=== PATIENT | male | born 1980 | race Caucasian/White ===

== ENCOUNTER → 2025-03-22 | Outpatient (CLI) | payer OTHER, SELFPAY ==
--- OUTSIDE RECORDS SUMMARY | 2025-03-22 14:07 | XMS RPT_ITS | CCD ---
Author Organization [facility] CliniSynh Care Team Providers Care Egg Separator Name Role Phone SHUKRI CHICAS Admitting Unavailable SHUKRI CHICAS Primary Care Unavailable SHUKRI CHICAS Attending Unavailable SHUKRI CHICAS Admitting Unavailable SHUKRI CHICAS Primary Care Unavailable SHUKRI CHICAS Consulting Unavailable SHUKRI CHICAS Attending Unavailable PROVIDER, UNKNOWN Consulting Unavailable Juan Francisco HEEL SCORER, Shukri Falcon Referring Unav ailable Bacon HEEL SCORER, Shukri Falcon Attending Unav ailable Problems Problem Classification Problem Date Documented Da te Episodic/Chronic Disorders of lipid metabolism (1 source) Pure hypercholesterolemi a, unspecified; Translations: [Pure hypercholesterolemi a, unspecified] Onset: 03-20-2025 Chronic Residual codes; unclassified (1 source) Family history of ischemic heart disease and other diseases of the circulatory system; Translations: [Family history of ischemic heart disease and other diseases of the circulatory system] Onset: 03-20-2025 Episodic Results Test Name Value Interpretation Reference Range Facil ity CMP with eGFRon 12-31-2024 AGE 44 years Normal [facility] Comment on above: Performed By: #### 2 [id number] #### [facility],[address] [place] [address]14 Albumin [Mass/Vol] 3.6 g/dL Normal 3.4 - 5.0 [facility] Comment on above: Performed By: #### 2 26772 #### [facility],[address] [place] [address] 48643 Albumin/Globulin [Mass ratio] 1.0 {ratio} Normal 0.9 - 1.6 [facility] Comment on above: Performed By: #### 2 30682 #### [facility],[address] [place] [address] ALK PHOS 69 U/L Normal 46 - 116 [facility] Comment on above: Performed By: #### 2 88409 #### [facility],[address] [place], [place] [id number] ALT [Catalytic activity/Vol] 41 U/L Normal 16 - 63 [facility] Comment on above: Performed By: #### 2 24547 #### [facility],[address] [place] [address] Anion gap [Moles/Vol] 7 mmol/L Low 10 - 20 [facility] Comment on above: Performed By: #### 2 44597 #### [facility],[address] [place] [address] AST [Catalytic activity/Vol] 19 U/L Normal 15 - 37 [facility] Comment on above: Performed By: #### 2 79444 #### [facility],[address] [place] [address] B/C RATIO 16 ratio Normal 0 - 30 [facility] Comment on above: Performed By: #### 2 19015 #### [facility],[address] [place] [address] Bilirubin [Mass/Vol] 0.5 mg/dL Normal 0.2 - 1.0 [facility] Comment on above: Performed By: #### 2 06077 #### [facility],[address] [place], [place] [phone] Calcium [Mass/Vol] 8.8 mg/dL Normal 8.5 - 10.1 [facility] Comment on above: Performed By: #### 2 33373 #### [facility],[address] [place], [place] [phone] Chloride [Moles/Vol] 104 mmol/L Normal 98 - 107 [facility] Comment on above: Performed By: #### 2 25005 #### [facility],[address] [place], [place] [phone] CMP with eGFR Normal [facility] Comment on above: Result Comment: COMP REHENSIVE METABOLIC PANEL Performed By: #### 2 85384 #### [facility],[address] [place] [address] CO2 [Moles/Vol] 33.0 mmol/L High 21.0 - 32.0 [facility] Comment on above: Performed By: #### 2 97579 #### [facility],[address] [place] [address] Creatinine [Mass/Vol] 0.99 mg/dL Normal 0.70 - 1.30 [facility] Comment on above: Performed By: #### 2 74729 #### [facility],[address] [place] [address] GFR/1.73 sq M.predicted among non-blacks MDRD (S/P/Bld) [Vol rate/Area] mL/min/{1.73_m2} Normal 60 - 999 [facility] Comment on above: Performed By: #### 2 20626 #### [facility],[address] [place] [address] Result Comment: ACCO RDING TO THE NATIONAL KIDNEY DISEASE EDUCATION PROGRAM(NKDE), A NORMAL eGFR IS A VALUE GREATER THAN OR EQUAL TO 60 ML/MIN/1.73 SQ METERS. CHRONIC KIDNEY DISEASE: <60mL/MIN/1.73 SQ METERS KIDNEY FAILURE: <15mL/MIN/1.73 SQ METERS THIS TEST SHOULD ONLY BE USED FOR PATIENTS 18 YEARS OF AGE AND OLDER. Globulin (S) [Mass/Vol] 3.7 g/dL Normal 1.5 - 3.8 [facility] Comment on above: Performed By: #### 2 23550 #### [facility],[address] [place] [address] Glucose [Mass/Vol] 92 mg/dL Normal 74 - 106 [facility] Comment on above: Performed By: #### 2 78528 #### [facility],[address] [place] [address] Potassium [Moles/Vol] 3.5 mmol/L Normal 3.5 - 5.1 [facility] Comment on above: Performed By: #### 2 03873 #### [facility],[address] [place] [address] 95582 Protein [Mass/Vol] 7.3 g/dL Normal 6.4 - 8.2 [facility] Comment on above: Performed By: #### 2 04525 #### [facility],[address] [place] [address]43 Sodium [Moles/Vol] 140 mmol/L Normal 136 - 145 [facility] Comment on above: Performed By: #### 2 06386 #### [facility],[address] [place] [address] 71731 Urea nitrogen [Mass/Vol] 16 mg/dL Normal 7 - 18 [facility] Comment on above: Performed By: #### 2 33196 #### [facility],[address] [place] [address]752 LIPID PROFILEon 12-31-2024 Cholesterol [Mass/Vol] 171 mg/dL Normal 0 - 240 [facility] Comment on above: Performed By: #### 2 59957 #### [facility],[address] [place] [address] 87393 Cholesterol in HDL [Mass/Vol] 55 mg/dL Normal 40 - 60 [facility] Comment on above: Performed By: #### 2 43923 #### [facility],[address] [place] [address]78 Cholesterol in LDL [Mass/Vol] 102 mg/dL Normal 0 - 129 [facility] Comment on above: Performed By: #### 2 02290 #### [facility],[address] [place] [address] 08617 Cholesterol.total/C holesterol in HDL [Mass ratio] 3.1 {ratio} Normal 0.0 - 5.0 [facility] Comment on above: Performed By: #### 2 53340 #### [facility],[address] [place] [address] 73837 Lipid 1996 panel Normal [facility] Comment on above: Result Comment: LIPI D PROFILE Performed By: #### 2 03509 #### [facility],[address] [place] [address] 12101 Triglyceride [Mass/Vol] 68 mg/dL Normal 0 - 150 [facility] Comment on above: Performed By: #### 2 87245 #### [facility],[address] [place] [address] 25051 URINE MICROALBUMIN W/CREATIN INE, RANDOMon 12-31-2024 CREATININE UR 75.09 mg/dl Normal [facility] Comment on above: Performed By: #### 2 38541 #### [facility],[address] [place] [address] 58989 MICROALBUMIN UR 0.2 mg/dL Normal 0.1 - 25.1 [facility] Comment on above: Performed By: #### 2 65272 #### [facility],[address] [place] [address] 08763 UACR 3 mg/g Normal [facility] Comment on above: Performed By: #### 2 05948 #### [facility],[address] [place] [address] 69495 CMP with eGFRon 02-22-2024 AGE 43 years Normal [facility] Comment on above: Performed By: #### 2 66874 #### [facility],[address] [place] [address] 07777 Albumin [Mass/Vol] 3.4 g/dL Normal 3.4 - 5.0 [facility] Comment on above: Performed By: #### 2 16821 #### [facility],[address] [place] [address] 08732 Albumin/Globulin [Mass ratio] 1.0 {ratio} Normal 0.9 - 1.6 [facility] Comment on above: Performed By: #### 2 68727 #### [facility],[address] [place] [address] 67491 ALK PHOS 67 U/L Normal 46 - 116 [facility] Comment on above: Performed By: #### 2 94154 #### [facility],[address] [place] [address] 11943 ALT [Catalytic activity/Vol] 39 U/L Normal 16 - 63 [facility] Comment on above: Performed By: #### 2 07068 #### [facility],[address] [place] [address] 63440 Anion gap [Moles/Vol] 11 mmol/L Normal 10 - 20 [facility] Comment on above: Performed By: #### 2 58497 #### [facility],[address] [place] [address] 52887 AST [Catalytic activity/Vol] 21 U/L Normal 15 - 37 [facility] Comment on above: Performed By: #### 2 15986 #### [facility],[address] [place] [address] 27940 B/C RATIO 19 ratio Normal 0 - 30 [facility] Comment on above: Performed By: #### 2 69693 #### [facility],[address] [place] [address] 03336 Bilirubin [Mass/Vol] 0.5 mg/dL Normal 0.2 - 1.0 [facility] Comment on above: Performed By: #### 2 11640 #### [facility],[address] [place] [address] 50988 Calcium [Mass/Vol] 8.9 mg/dL Normal 8.5 - 10.1 [facility] Comment on above: Performed By: #### 2 79889 #### [facility],[address] [place] [address] 75780 Chloride [Moles/Vol] 104 mmol/L Normal 98 - 107 [facility] Comment on above: Performed By: #### 2 48330 #### [facility],[address] [place] [address] 70585 CMP with eGFR Normal [facility] Comment on above: Result Comment: COMP REHENSIVE METABOLIC PANEL Performed By: #### 2 58649 #### [facility],[address] [place] [address] 63266 CO2 [Moles/Vol] 27.5 mmol/L Normal 21.0 - 32.0 [facility] Comment on above: Performed By: #### 2 11086 #### [facility],[address] [place] [address] 28590 Creatinine [Mass/Vol] 1.07 mg/dL Normal 0.70 - 1.30 [facility] Comment on above: Performed By: #### 2 80711 #### [facility],[address] [place] [address] 39382 GFR/1.73 sq M.predicted among non-blacks MDRD (S/P/Bld) [Vol rate/Area] mL/min/{1.73_m2} Normal 60 - 999 [facility] Comment on above: Performed By: #### 2 34742 #### [facility],[address] [place] [address]992 Result Comment: ACCO RDING TO THE NATIONAL KIDNEY DISEASE EDUCATION PROGRAM(NKDE), A NORMAL eGFR IS A VALUE GREATER THAN OR EQUAL TO 60 ML/MIN/1.73 SQ METERS. CHRONIC KIDNEY DISEASE: <60mL/MIN/1.73 SQ METERS KIDNEY FAILURE: <15mL/MIN/1.73 SQ METERS THIS TEST SHOULD ONLY BE USED FOR PATIENTS 18 YEARS OF AGE AND OLDER. Globulin (S) [Mass/Vol] 3.5 g/dL Normal 1.5 - 3.8 [facility] Comment on above: Performed By: #### 2 23252 #### [facility],[address] [place] [address] 70082 Glucose [Mass/Vol] 99 mg/dL Normal 74 - 106 [facility] Comment on above: Performed By: #### 2 58508 #### [facility],[address] [place] [address] 34025 Potassium [Moles/Vol] 3.8 mmol/L Normal 3.5 - 5.1 [facility] Comment on above: Performed By: #### 2 79887 #### [facility],[address] [place] [address] 55350 Protein [Mass/Vol] 6.9 g/dL Normal 6.4 - 8.2 [facility] Comment on above: Performed By: #### 2 61481 #### [facility],[address] [place] [address] 42468 Sodium [Moles/Vol] 139 mmol/L Normal 136 - 145 [facility] Comment on above: Performed By: #### 2 60327 #### [facility],[address] [place] [address] 46682 Urea nitrogen [Mass/Vol] 20 mg/dL High 7 - 18 [facility] Comment on above: Performed By: #### 2 11273 #### [facility],[address] [place] [address] 54714 LIPID PROFILEon 02-22-2024 Cholesterol [Mass/Vol] 178 mg/dL Normal 0 - 240 [facility] Comment on above: Performed By: #### 2 88826 #### [facility],[address] [place] [address] 02782 Cholesterol in HDL [Mass/Vol] 60 mg/dL Normal 40 - 60 [facility] Comment on above: Performed By: #### 2 02741 #### [facility],[address] [place] [address] 48367 Cholesterol in LDL [Mass/Vol] 104 mg/dL Normal 0 - 129 [facility] Comment on above: Performed By: #### 2 07856 #### [facility],[address] [place] [address] 72473 Cholesterol.total/C holesterol in HDL [Mass ratio] 3.0 {ratio} Normal 0.0 - 5.0 [facility] Comment on above: Performed By: #### 2 09532 #### [facility],[address] [place] [address] 48011 Lipid 1996 panel Normal [facility] Comment on above: Result Comment: LIPI D PROFILE Performed By: #### 2 26842 #### [facility],[address] [place] [address] 71561 Triglyceride [Mass/Vol] 71 mg/dL Normal 0 - 150 [facility] Comment on above: Performed By: #### 2 95672 #### [facility],[address] [place] [address] 49973 URINE MICROALBUMIN W/CREATIN INE, RANDOMon 02-22-2024 CREATININE UR 55.98 mg/dl Normal [facility] Comment on above: Performed By: #### 2 77376 #### [facility],[address] [place] [address] 11174 MICROALBUMIN UR 0.4 mg/dL Normal 0.1 - 25.1 [facility] Comment on above: Performed By: #### 2 48193 #### [facility],[address] [place] [address] 37696 UACR 7 mg/g Normal [facility] Comment on above: Performed By: #### 2 34272 #### [facility],[address] [place] [address]19 Encounters Encounter Date Encounter Type Care Provider Facility Start: 03-22-2025 ambulatory Shukri Chicas NP Facility:[facility] Start: 12-31-2024 End: 12-31-2024 ambulatory SHUKRI CHICAS [facility] Start: 02-22-2024 End: 02-22-2024 [facility] Payers Date Payer Category Payer Self-pay 2025 Unknown [id number] 1980 Unknown [id number] 1980 Unknown [id number] Unknown [id number] Summary Purpose Family History No Family History Records FoundNo Family History Records Found Advance Directives No Advanced Directives Records FoundNo Advanced Directives Records Found Additional Source Comments (unrecognized sect ion and content) No Status Records FoundNo Status Records Found INFORMATION SOURCE (unrecogn ized section and content) DATE CREATED AUTHOR [facility]/01/2025 [facility] [place] DATE CREATED AUTHOR AUTHOR'S ELTON HURLEY 03/21/2025 [facility] FOR RECORDS PERTAINING TO PATIENTS WHO ARE OR HAVE BEEN ENROLLED IN A CHEMICAL DEPENDENCY/SUBSTANCEABUSE PROGRAM, SOME INFORMATION MAY BE OMITTED. This clinical summary was aggregated from multiple sources. Caution should be exercised in using it in the provision of clinical care. This summary normalizes information from multiple sources, and as a consequence, information in this document may materially change the coding, format and clinical context of patient data. In addition, data may be omitted in some cases. CLINICAL DECISIONS SHOULD BE BASED ON THE PRIMARY CLINICAL RECORDS. [employer] provides no warranty or guarantee of the accuracy or completeness of information in this document.
== END | disposition home or self-care (01) ==
PROVIDERS: PCP Nurse Practitioner Family; Referring Provider Nurse Practitioner Family; Visit Provider Nurse Practitioner Family
DX: E78.00 Pure hypercholesterolemia, unspecified (principal); Z82.49 Family history of ischemic heart disease and other diseases of the circulatory system